=== PATIENT | female | born 1990 | race Caucasian/White ===

== ENCOUNTER 2017-02-22 07:42 | Emergency (ER) | payer SELFPAY ==
[2017-02-22] MEDS ORDERED: Adacel (T-DAP) 0.5 ML VIAL ONE (08:44)
== END 2017-02-22 09:11 | disposition home or self-care (01) ==
LOC: ERS 07:42
DX: L02.413 Cutaneous abscess of right upper limb (principal); L03.113 Cellulitis of right upper limb
CPT/HCPCS: 10060; 90471; 90715

== ENCOUNTER 2017-02-23 08:44 | Inpatient (IN) | payer SELFPAY ==
[2017-02-23 09:51] LABS: #Eosinphils 0.1 thou/uL (0.0-0.7); #Lymphocytes 1.4 thou/uL (1.20-3.40); #Monocytes 0.6 thou/uL (0.11-0.59); %Basophils 0.2 % (0.0-1.0); %Eosinophils 1.1 % (0.0-10.0); %Lymphocytes 13.5 % (21.0-51.0); %Monocytes 6.2 % (0.0-10.0); Hematocrit 39.8 % (36.0-47.0); Mean Platelet Volume 8.1 fL (7.4-10.4); Red Blood Cell (RBC) Count 4.81 mill/uL (4.20-5.40); White Blood Cell (WBC) Count 10.1 thou/uL (4.8-10.8)
[2017-02-23] MEDS ORDERED: cefTRIAXone\\ROCEPHIN 2 GM VIAL ONE (10:12)
[2017-02-23] MEDS ORDERED: Acetaminophen 325 MG TAB ONE (10:12)
[2017-02-23] MEDS ORDERED: Ibuprofen 800 MG TAB ONE (10:12)
[2017-02-23 10:14] LABS: ALT (SGPT) 11 U/L (8-55); AST (SGOT) 10 U/L (5-34); Alkaline Phosphatase 59 U/L (40-150); Anion Gap 14 mmol/L (10-20); BUN (Urea Nitrogen) 11 mg/dL (7.0-18.7); Bilirubin, Total 0.8 mg/dL (0.2-1.2); Calc. Creatinine Clearance 0 mL/min (70-130); Calcium 9.3 mg/dL (7.8-10.44); Carbon Dioxide 20 mmol/L (22-29); Chloride 105 mmol/L (98-107); Estimated GFR-MDRD 61; Globulin 3.3 g/dL (2.4-3.5); Protein, Total 7.1 g/dL (6.0-8.3)
[2017-02-23 10:21] LABS: Lactic Acid - Sepsis 1.1 mmol/L (0.5-2.2)
[2017-02-23] MEDS ORDERED: Vancomycin HCl 1.5 GM in Sodium Chloride 0.9% 250 ML 300 ML IVPB SCH (10:30)
[2017-02-23] MEDS ORDERED: Ondansetron HCl/PF 4 MG/2 ML Vial IVP PRN (12:01)
[2017-02-23] MEDS ORDERED: Bisacodyl 5 MG TAB PO PRN (12:01)
--- NOTE | 2017-02-23 12:21 | HP ---
PRIMARY CARE PHYSICIAN: None. CHIEF COMPLAINT: Hand swelling. HISTORY OF PRESENT ILLNESS: Ms. Aquino is a pleasant 26-year-old lady who was seen at [facility] on 02/23/2017. Approximately a week ago, she sustained an ant bite to her right wrist. It has been progressively s welling. She also reports pain, the pain is localized to the dorsum of the right wrist. It is wors e with movement of the hand, improves with relaxing the hand. Currently, pain is 5/10. She also had fever, maximum temperature 100.9 degrees Fahrenheit. She presented to the emergency room yesterday. She had incision and drainage of a small abscess on the right wrist. She was started on Bactrim DS. She took 2 doses. However, she reports worsening swelling and purulent drainage. She also reports that she has worsening redness over the right wris t, which has now spread to the right forearm. She therefore came to the emergency room. PAST MEDICAL HISTORY: Shingles. PAST SURGICAL HISTORY: section. SOCIAL HISTORY: The patient denies tobacco use, alcohol use or recreational drug use. FAMILY HISTORY: Patient denies any family history of diabetes mellitus. ALLERGIES: No known drug allergies. CURRENT MEDICATION: Bactrim DS 1 tablet 2 times a day. PHYSICAL EXAMINATION: GENERAL: On examination, Ms. Aquino is awake and alert, not in acute distress. VITAL SIGNS: Blood pressure is 109/75, pulse is 74, she is breathing at rate of 16, and saturating 99% on room air. She is afebrile. EYES: No scleral icterus. No conjunctival pallor. ENT: Moist mucosal membranes, no oropharyngeal erythema or exudates. NECK: Supple, nontender, normal range of movement, trachea is midline. RESPIRATORY: Accessory muscles of breathing are not active. Chest wall movements are symmetric moises aterally. LUNGS: Clear to auscultation without wheeze, rhonchi or crepitations. CARDIOVASCULAR: S1 and S2 are heard, regular. Peripheral pulses are palpable. No carotid bruit, n o pericardial rub. ABDOMEN: Soft, nontender, bowel sounds heard, no hepatomegaly, no splenomegaly. NEUROLOGIC: Cranial nerves II-XII are intact. No neurologic deficits on the right upper extremity. No vascular deficits in the right upper extremity as well. MUSCULOSKELETAL: Power is 5/5 in all 4 extremities. She is unable to make a full fist with her rig ht upper extremity because she can feel it pressing on the swelling over the dorsum of her hand. SKIN: She has an open wound at the site of incision and drainage over the dorsum of the right wrist . She also has swelling and erythema over the dorsum of the right hand as well as erythema extendin g into distal right forearm. There are no neurovascular deficits in that extremity. PSYCHIATRIC: Normal mood, normal affect, patient is oriented to time, place and person. LYMPHATIC: No cervical lymphadenopathy. LABORATORY DATA: Ms. Aquino's labs and investigations were reviewed. She has sodium of 135, lyudmila l potassium, normal lactic acid, decreased carbon dioxide of 20, normal creatinine, and normal liver profile. Total white count is normal at 10,100, although neutrophil percentage is elevated at 79%. Hemoglobin and platelet count are normal. ASSESSMENT AND PLAN: Ms. Aquino is a pleasant 26-year-old lady who was seen at [facility]. Her problem list includes: 1. Cellulitis: Ms. Aquino has cellulitis as well as abscess, which was incised and drained yester day over the right wrist dorsum. The cellulitis extends to the dorsum of the right hand as well as distal right forearm. She will be admitted to the hospital. I will continue intravenous vancomycin and start her on intravenous Ancef. She has received a dose of vancomycin already as well as ceftr iaxone. Await cultures, blood and wound. 2. Hyponatremia: Mild, asymptomatic, we will recheck. 3. Deep venous thrombosis prophylaxis with Lovenox. LEVEL OF RISK: Moderate. LEVEL OF COMPLEXITY: Moderate.
[2017-02-23 12:57] VITALS: BMI 40.4
[2017-02-23] MEDS: Vancomycin HCl 1 GM in Premix Bag 1 BAG IVPB SCH (20:25)
[2017-02-24] MEDS: Acetaminophen 325 MG TAB PO PRN (00:31)
[2017-02-24 04:37] LABS: #Eosinphils 0.3 thou/uL (0.0-0.7); #Lymphocytes 2.1 thou/uL (1.20-3.40); #Monocytes 0.6 thou/uL (0.11-0.59); #Neutrophils 5.5 thou/uL (1.40-6.50); %Basophils 0.4 % (0.0-1.0); %Lymphocytes 24.3 % (21.0-51.0); %Monocytes 6.9 % (0.0-10.0); Mean Platelet Volume 8.3 fL (7.4-10.4); Red Blood Cell (RBC) Count 4.44 mill/uL (4.20-5.40); White Blood Cell (WBC) Count 8.4 thou/uL (4.8-10.8)
[2017-02-24 05:02] LABS: Anion Gap 13 mmol/L (10-20); BUN (Urea Nitrogen) 12 mg/dL (7.0-18.7); Calc. Creatinine Clearance 160 mL/min (70-130); Calcium 8.6 mg/dL (7.8-10.44); Carbon Dioxide 18 mmol/L (22-29); Chloride 106 mmol/L (98-107); Estimated GFR-MDRD 68
[2017-02-24] MEDS: Vancomycin HCl 1 GM in Premix Bag 1 BAG IVPB SCH ×2 (09:42→20:35)
[2017-02-24] MEDS: Enoxaparin Sodium 40 MG/0.4 ML SYRINGE SC SCH (09:44)
--- NOTE | 2017-02-24 15:48 | PDOC.PN ---
- Subjective Encounter Start Date: 02/24/17 Encounter Start Time: 10:35 Subjective: still has purulence coming out of her wound on right forearm - Objective MAR Reviewed: Yes Vital Signs & Weight: Vital Signs (12 hours) Temp Pulse Resp BP Pulse Ox 02/24/17 11:40 98.1 F 71 16 104/67 98 02/24/17 08:24 97.9 F 74 12 97 02/24/17 07:55 97.9 F 74 16 107/73 97 02/24/17 04:00 98.2 F 75 18 103/64 98 Weight Weight 257 lb 12.8 oz I&O: 02/23/17 02/24/17 02/25/17 06:59 06:59 06:59 Intake Total 1002.5 Balance 1002.5 Result Diagrams: 02/24/17 04:05 02/24/17 04:05 Phys Exam - Physical Examination HEENT: PERRLA, moist MMs Neck: no JVD, supple Respiratory: no wheezing, no rales Cardiovascular: RRR, no significant murmur Gastrointestinal: soft, non-tender, positive bowel sounds Musculoskeletal: pulses present right hand is erythematous, lower dorsum of forearm has an abscess Neurological: non-focal, moves all 4 limbs Psychiatric: A&O x 3 Dx/Plan (1) Abscess of right forearm Code(s): L02.413 - CUTANEOUS ABSCESS OF RIGHT UPPER LIMB Status: Acute (2) Cellulitis of right hand Code(s): L03.113 - CELLULITIS OF RIGHT UPPER LIMB Status: Acute - Plan is on ancef and vanc -: d/w -: will likely need wider I&D -: had tmax of 100 last 24hrs * . Review of Systems - Medications/Allergies Allergies/Adverse Reactions: Allergies Allergy/AdvReac Type Severity Reaction Status Date / Time No Known Drug Allergies Allergy Verified 02/23/17 12:53 Medications: Current Medications Acetaminophen (Tylenol) 650 mg PO Q4H PRN PRN Reason: Headache/Fever or Pain Last Admin: 02/24/17 00:31 Dose: 650 mg Bisacodyl (Dulcolax) 10 mg PO DAILYPRN PRN PRN Reason: Constipation Enoxaparin Sodium (Lovenox) 40 mg SC 0900 [facility] Last Admin: 02/24/17 09:44 Dose: Not Given Vancomycin HCl 1 gm/ Device 200 mls @ 200 mls/hr IVPB Q12HR [facility] Last Admin: 02/24/17 09:42 Dose: 200 mls Cefazolin Sodium 1 gm/ Sodium (Chloride) 100 mls @ 200 mls/hr IVPB Q8HR [facility] Last Admin: 02/24/17 14:35 Dose: 100 mls Morphine Sulfate (Morphine Sulfate) 2 mg SLOW IVP Q4H PRN PRN Reason: Pain > 3 Last Admin: 02/23/17 21:07 Dose: 2 mg Ondansetron HCl (Zofran) 4 mg IVP Q6H PRN PRN Reason: Nausea/Vomiting Sodium Chloride (Flush - Normal Saline) 10 ml IVF PRN PRN PRN Reason: Saline Flush Last Admin: 02/24/17 14:36 Dose: 10 ml
[2017-02-24] MEDS ORDERED: Bupivacaine PF 0.5% 30 ML VIAL ONE (16:23)
[2017-02-24] MEDS ORDERED: Betamet Acet/Betamet Na Ph 30 MG/5 ML VIAL ONE (16:23)
[2017-02-24] MEDS ORDERED: Bacitracin Zinc Ointment 30 gm TUBE ONE ×2 (16:23→16:24)
[2017-02-24] MEDS ORDERED: Sodium Chloride 0.9% 30 ML ONE (16:25)
[2017-02-24] MEDS ORDERED: Fentanyl 100 MCG/2 ML VIAL ONE ×2 (17:14→18:38)
[2017-02-24] MEDS ORDERED: Ketorolac Tromethamine 30 MG/ML VIAL ONE (17:22)
[2017-02-24] MEDS ORDERED: Lidocaine 1% PF 5 ML VIAL ONE (17:22)
[2017-02-24] MEDS ORDERED: Propofol 200 MG/20 ML VIAL ONE ×2 (17:22)
[2017-02-24] MEDS ORDERED: Ondansetron HCl/PF 4 MG/2 ML Vial IVP PRN (18:22)
[2017-02-24] MEDS ORDERED: Promethazine HCl 25 MG/ML VIAL SLOW IVP PRN (18:22)
[2017-02-24] MEDS ORDERED: Promethazine HCl 25 MG/ML VIAL IM PRN ×2 (18:22→21:53)
[2017-02-24] MEDS ORDERED: Meperidine HCl/PF 25 MG/ML VIAL IM PRN (21:52)
[2017-02-25] MEDS: HYDROcodone/Acetaminophen 7.5/325 mg Tablet PO PRN ×2 (04:16→17:02)
[2017-02-25 05:09] LABS: #Eosinphils 0.2 thou/uL (0.0-0.7); #Lymphocytes 1.8 thou/uL (1.20-3.40); #Monocytes 0.6 thou/uL (0.11-0.59); #Neutrophils 3.6 thou/uL (1.40-6.50); %Basophils 0.1 % (0.0-1.0); %Eosinophils 2.9 % (0.0-10.0); %Lymphocytes 28.7 % (21.0-51.0); Hematocrit 35.8 % (36.0-47.0); Mean Platelet Volume 8.5 fL (7.4-10.4); Red Blood Cell (RBC) Count 4.34 mill/uL (4.20-5.40); White Blood Cell (WBC) Count 6.2 thou/uL (4.8-10.8)
[2017-02-25 05:25] LABS: Anion Gap 11 mmol/L (10-20); BUN (Urea Nitrogen) 9 mg/dL (7.0-18.7); Calc. Creatinine Clearance 189 mL/min (70-130); Calcium 8.8 mg/dL (7.8-10.44); Carbon Dioxide 21 mmol/L (22-29); Chloride 108 mmol/L (98-107); Estimated GFR-MDRD 83
--- NOTE | 2017-02-25 07:55 | OP ---
DATE OF PROCEDURE: 02/24/2017 PREOPERATIVE DIAGNOSIS: Right hand abscess secondary to what she describes as a single ant bite. POSTOPERATIVE DIAGNOSIS: Abscess almost 2 cm in diameter depth down to, but not including the fasci a over the dorsal interval between the second and third dorsal compartments. COMPLICATIONS: None. PROCEDURE: Incision and drainage abscess. Culture sent, yes. COMPLICATIONS: None. TOURNIQUET TIME: 11 minutes. ESTIMATED BLOOD LOSS: 15 mL. PACKING: Normal saline soaked gauze. Specimen sent to lab yes. Tissue cultures, aerobic, anaerobic, fungus and TB. INDICATION: The patient came to the hospital with a 4 day, what she describes as a single ant bite. She has been on IV antibiotics for 24 hour with no resolution, large erythema, abscess seen, thus i ndicating surgery. DESCRIPTION OF PROCEDURE: After successful general endotracheal anesthesia, the hand was prepped an d draped. Tourniquet was inflated after limb exsanguination 250 mmHg pressure. We then identified abscess cavity made approximately a 3.5 cm incision, completely resected the necrotic skin edge, fou nd the subcutaneous cavity almost 2 cm in diameter, depth approximately 5-6 mm and excised the dorsa l wall, the deep wall and entire cavity including necrotic fat around it. Then, we had only live ti ssue sparing all nerves and tendons. We then irrigated with the Pulsavac 3 liters with normal saline inside, treatment with bacitracin in side, 59 units per liter. Then, we deflated the tourniquet, and obtained hemostasis, packed the wo und with normal saline soaked gauze x2. Bulky dressing was applied. The patient left the operating room without complications.
[2017-02-25] MEDS: Enoxaparin Sodium 40 MG/0.4 ML SYRINGE SC SCH (08:11)
[2017-02-25] MEDS: Vancomycin HCl 1 GM in Premix Bag 1 BAG IVPB SCH ×2 (08:12→23:06)
--- NOTE | 2017-02-25 11:26 | PDOC.PN ---
- Subjective Encounter Start Date: 02/25/17 Encounter Start Time: 09:20 Subjective: feels better -: is able to move fingers, still edematous - Objective MAR Reviewed: Yes Vital Signs & Weight: Vital Signs (12 hours) Temp Pulse Resp BP Pulse Ox 02/25/17 08:00 97.6 F 58 L 14 98 02/25/17 07:43 97.6 F 58 L 14 101/61 98 02/25/17 04:00 97.9 F 61 20 108/72 02/25/17 00:00 97.4 F L 61 20 108/73 97 Weight Weight 257 lb 12.8 oz I&O: 02/24/17 02/25/17 02/26/17 06:59 06:59 06:59 Intake Total 1002.5 1320 Output Total 4 Balance 1002.5 1316 Result Diagrams: 02/25/17 04:42 02/25/17 04:42 Phys Exam - Physical Examination HEENT: PERRLA, moist MMs Neck: no JVD, supple Respiratory: no wheezing, no rales Cardiovascular: RRR, no significant murmur Gastrointestinal: soft, non-tender, positive bowel sounds Musculoskeletal: pulses present right forearm in dressing Neurological: non-focal, moves all 4 limbs Psychiatric: A&O x 3 Dx/Plan (1) Abscess of right forearm Code(s): L02.413 - CUTANEOUS ABSCESS OF RIGHT UPPER LIMB Status: Acute (2) Cellulitis of right hand Code(s): L03.113 - CELLULITIS OF RIGHT UPPER LIMB Status: Acute (3) Obesity Code(s): E66.9 - OBESITY, UNSPECIFIED Status: Acute Qualifiers: Obesity classification: adult class 3 (BMI >= 40) - Plan is on ancef and vanc -: may dc home in am on augmentin and cipro if ok with -: needs to learn dressing changes -: right forearm and hand swelling slowly receding * . Review of Systems - Medications/Allergies Allergies/Adverse Reactions: Allergies Allergy/AdvReac Type Severity Reaction Status Date / Time No Known Drug Allergies Allergy Verified 02/23/17 12:53 Medications: Current Medications Acetaminophen (Tylenol) 650 mg PO Q4H PRN PRN Reason: Headache/Fever or Pain Last Admin: 02/24/17 00:31 Dose: 650 mg Hydrocodone Bitart/Acetaminophen ([place] 7.5/325) 1 tab PO Q6H PRN PRN Reason: PAIN SCALE 1-3 Last Admin: 02/25/17 04:16 Dose: 1 tab Hydrocodone Bitart/Acetaminophen ([place] 7.5/325) 2 tab PO Q6H PRN PRN Reason: PAIN SCALE 4-6 Bisacodyl (Dulcolax) 10 mg PO DAILYPRN PRN PRN Reason: Constipation Enoxaparin Sodium (Lovenox) 40 mg SC 0900 [facility] Last Admin: 02/25/17 08:11 Dose: Not Given Vancomycin HCl 1 gm/ Device 200 mls @ 200 mls/hr IVPB Q12HR [facility] Last Admin: 02/25/17 08:12 Dose: 200 mls Cefazolin Sodium 1 gm/ Sodium (Chloride) 100 mls @ 200 mls/hr IVPB Q8HR [facility] Last Admin: 02/25/17 05:07 Dose: 100 mls Meperidine HCl (Demerol) 25 mg IM Q4H PRN PRN Reason: FOR SEVERE PAIN OR DRESSING CH Last Admin: 02/25/17 06:53 Dose: 25 mg Morphine Sulfate (Morphine Sulfate) 2 mg SLOW IVP Q4H PRN PRN Reason: Pain > 3 Last Admin: 02/23/17 21:07 Dose: 2 mg Ondansetron HCl (Zofran) 4 mg IVP Q6H PRN PRN Reason: Nausea/Vomiting Promethazine HCl (Phenergan) 25 mg IM Q4H PRN PRN Reason: Nausea (GIVE WITH DEMEROL ) Last Admin: 02/25/17 06:55 Dose: 25 mg Sodium Chloride (Flush - Normal Saline) 10 ml IVF PRN PRN PRN Reason: Saline Flush Last Admin: 02/25/17 05:07 Dose: 10 ml
[2017-02-25 20:32] LABS: Vancomycin, Trough 8.5 ug/mL
[2017-02-25] MEDS ORDERED: Vancomycin HCl 1.75 GM in Sodium Chloride 0.9% 500 ML IVPB SCH (22:15)
[2017-02-26] MEDS: HYDROcodone/Acetaminophen 7.5/325 mg Tablet PO PRN ×3 (00:14→16:52)
[2017-02-26 05:14] LABS: #Eosinphils 0.3 thou/uL (0.0-0.7); #Lymphocytes 2.6 thou/uL (1.20-3.40); #Monocytes 0.5 thou/uL (0.11-0.59); #Neutrophils 2.2 thou/uL (1.40-6.50); %Basophils 0.4 % (0.0-1.0); %Eosinophils 5.7 % (0.0-10.0); %Monocytes 8.1 % (0.0-10.0); Mean Platelet Volume 8.5 fL (7.4-10.4); Red Blood Cell (RBC) Count 4.06 mill/uL (4.20-5.40); White Blood Cell (WBC) Count 5.6 thou/uL (4.8-10.8)
[2017-02-26 05:45] LABS: Anion Gap 8 mmol/L (10-20); BUN (Urea Nitrogen) 12 mg/dL (7.0-18.7); Calc. Creatinine Clearance 201 mL/min (70-130); Calcium 8.6 mg/dL (7.8-10.44); Carbon Dioxide 25 mmol/L (22-29); Chloride 108 mmol/L (98-107); Estimated GFR-MDRD 89
[2017-02-26] MEDS: Enoxaparin Sodium 40 MG/0.4 ML SYRINGE SC SCH (08:33)
[2017-02-26] MEDS: Vancomycin HCl 1.75 GM in Sodium Chloride 0.9% 500 ML IVPB SCH ×2 (09:49→22:08)
--- NOTE | 2017-02-26 14:25 | PDOC.PN ---
- Subjective Encounter Start Date: 02/26/17 Encounter Start Time: 10:15 -: old records requested/rev Patient seen and examined. No new complaints. No overnight events - Objective MAR Reviewed: Yes Vital Signs & Weight: Vital Signs (12 hours) Temp Pulse Resp BP Pulse Ox 02/26/17 08:00 98.0 F 65 16 97 02/26/17 07:49 98.0 F 65 16 119/78 97 02/26/17 04:00 98 F 53 L 18 103/66 99 Weight Weight 257 lb 12.8 oz I&O: 02/25/17 02/26/17 02/27/17 06:59 06:59 06:59 Intake Total 1320 3000 Output Total 4 Balance 1316 3000 Result Diagrams: 02/26/17 04:36 02/26/17 04:36 Phys Exam - Physical Examination Constitutional: NAD HEENT: PERRLA, moist MMs, sclera anicteric Neck: no JVD, supple Respiratory: no wheezing, no rales, no rhonchi Cardiovascular: RRR, no significant murmur, no rub Gastrointestinal: soft, non-tender, no distention, positive bowel sounds Musculoskeletal: no edema, pulses present right hand with dressing Neurological: non-focal, normal sensation, moves all 4 limbs Psychiatric: normal affect, A&O x 3 Skin: no rash, normal turgor Dx/Plan (1) Abscess of right forearm Code(s): L02.413 - CUTANEOUS ABSCESS OF RIGHT UPPER LIMB Status: Acute (2) Cellulitis of right hand Code(s): L03.113 - CELLULITIS OF RIGHT UPPER LIMB Status: Acute (3) Obesity Code(s): E66.9 - OBESITY, UNSPECIFIED Status: Acute Qualifiers: Obesity classification: adult class 3 (BMI >= 40) - Plan cont current plan of care, continue antibiotics * medication reviewed as below * symptomatic treatment * continue IV antibiotics today * plan for discharge tomorrow on oral antibiotics. Review of Systems - Review of Systems ENT: negative: Ear Pain, Ear Discharge, Nose Pain, Nose Discharge, Nose Congestion, Mouth Pain, Mouth Swelling, Throat Pain, Throat Swelling, Other Respiratory: negative: Cough, Dry, Shortness of Breath, Hemoptysis, SOB with Excertion, Pleuritic Pain, Sputum, Wheezing Cardiovascular: negative: Chest Pain, Palpitations, Orthopnea, Paroxysmal Noc. Dyspnea, Edema, Light Headedness, Other Gastrointestinal: negative: Nausea, Vomiting, Abdominal Pain, Diarrhea, Constipation, Melena, Hematochezia, Other Genitourinary: negative: Dysuria, Frequency, Incontinence, Hematuria, Retention , Other Musculoskeletal: negative: Neck Pain, Shoulder Pain, Arm Pain, Back Pain, Hand Pain, Leg Pain, Foot Pain, Other - Medications/Allergies Allergies/Adverse Reactions: Allergies Allergy/AdvReac Type Severity Reaction Status Date / Time No Known Drug Allergies Allergy Verified 02/23/17 12:53 Medications: Current Medications Acetaminophen (Tylenol) 650 mg PO Q4H PRN PRN Reason: Headache/Fever or Pain Last Admin: 02/24/17 00:31 Dose: 650 mg Hydrocodone Bitart/Acetaminophen ([place] 7.5/325) 1 tab PO Q6H PRN PRN Reason: PAIN SCALE 1-3 Last Admin: 02/26/17 09:48 Dose: 1 tab Hydrocodone Bitart/Acetaminophen ([place] 7.5/325) 2 tab PO Q6H PRN PRN Reason: PAIN SCALE 4-6 Last Admin: 02/26/17 00:14 Dose: 2 tab Bisacodyl (Dulcolax) 10 mg PO DAILYPRN PRN PRN Reason: Constipation Enoxaparin Sodium (Lovenox) 40 mg SC 0900 [facility] Last Admin: 02/26/17 08:33 Dose: Not Given Cefazolin Sodium 1 gm/ Sodium (Chloride) 100 mls @ 200 mls/hr IVPB Q8HR [facility] Last Admin: 02/26/17 13:52 Dose: 100 mls Vancomycin HCl 1.75 gm/ Sodium (Chloride) 500 mls @ 250 mls/hr IVPB 1000,2200 [facility] Last Admin: 02/26/17 09:49 Dose: 500 mls Meperidine HCl (Demerol) 25 mg IM Q4H PRN PRN Reason: FOR SEVERE PAIN OR DRESSING [facility] Last Admin: 02/25/17 06:53 Dose: 25 mg Morphine Sulfate (Morphine Sulfate) 2 mg SLOW IVP Q4H PRN PRN Reason: Pain > 3 Last Admin: 02/23/17 21:07 Dose: 2 mg Ondansetron HCl (Zofran) 4 mg IVP Q6H PRN PRN Reason: Nausea/Vomiting Promethazine HCl (Phenergan) 25 mg IM Q4H PRN PRN Reason: Nausea (GIVE WITH DEMEROL ) Last Admin: 02/25/17 06:55 Dose: 25 mg Sodium Chloride (Flush - Normal Saline) 10 ml IVF PRN PRN PRN Reason: Saline Flush Last Admin: 02/25/17 05:07 Dose: 10 ml
[2017-02-26] MEDS: Acetaminophen 325 MG TAB PO PRN (21:07)
[2017-02-27] MEDS: HYDROcodone/Acetaminophen 7.5/325 mg Tablet PO PRN ×2 (00:07→06:29)
[2017-02-27 05:04] VITALS: TEMP 97.8
[2017-02-27] MEDS: Enoxaparin Sodium 40 MG/0.4 ML SYRINGE SC SCH (07:56)
[2017-02-27] MEDS: Vancomycin HCl 1.75 GM in Sodium Chloride 0.9% 500 ML IVPB SCH (07:56)
[2017-02-27 08:32] VITALS: BP 109/74
[2017-02-27 10:46] LABS: Vancomycin, Trough 18.7 ug/mL
--- NOTE | 2017-02-27 11:27 | DIS ---
DATE OF ADMISSION: 02/23/2017 DATE OF DISCHARGE: 02/27/2017 PRIMARY CARE PHYSICIAN: [facility] call admission. DISCHARGE DISPOSITION: Home. PRIMARY DISCHARGE DIAGNOSES: Cellulitis of right hand and abscess of right forearm, status post inc ision and drainage. SECONDARY DISCHARGE DIAGNOSIS: Obesity with body mass index 40. PRIMARY PROCEDURE/OPERATION: I\T\D was performed by Dr. Nima Reyna. RADIOLOGICAL INVESTIGATION: None. SIGNIFICANT LABORATORY DATA: Hemoglobin 11.0, creatinine 0.79, blood culture negative. Culture fro m wound grew Staph aureus. DISCHARGE MEDICATIONS: Tylenol #3 one or two tablets q.6 hourly p.r.n. for pain, Augmentin 875 mg t wice daily for 10 days, Cipro 500 mg p.o. b.i.d. for 10 days, and Florastor 250 mg p.o. daily for 10 days. CONTRAINDICATIONS: None. CODE STATUS: FULL CODE. INPATIENT HORSE SHOW JUDGE: Dr. Nima Reyna. TEST RESULTS PENDING ON DISCHARGE: None. ALLERGIES: No known drug allergy. DISCHARGE PLAN: Post hospital, the patient has appointment with Dr. Nima Reyna today at 11:30 a.m. HOSPITAL COURSE: A 26-year-old female who was admitted by Dr. Bland, please see his H\T\P for furth er details. The patient was admitted for right hand swelling and right wrist swelling. This patien t had abscess and required I\T\D. Dr. Nima Reyna did I\T\D and subsequently wound was dressed. The patient was given antibiotic therapy while in hospital with vancomycin and Ancef. On discharg e, we changed to Augmentin and Cipro. Today, patient has appointment with Dr. Nima Reyna. The patient remained afebrile while in hospital and she was hemodynamically stable. The patient is seen and examined at bedside today. PHYSICAL EXAMINATION: VITAL SIGNS: Currently, temperature 97.8, pulse 62, respiratory rate 16, saturation 97%, blood pres sure 109/74. Weight 257 pounds. GENERAL: The patient is alert, awake, no acute distress. HEAD: Normocephalic, atraumatic. LUNGS: Clear. CARDIAC: S1, S2 regular without any murmur. ABDOMEN: Soft and benign. EXTREMITIES: No edema. Wound is covered with a dressing. DISCHARGE INSTRUCTIONS: The patient is medically stable for discharge. All new medication prescrip tion given to her.
== END 2017-02-27 09:46 | disposition home or self-care (01) | DRG 603 ==
LOC: ERS 08:44 → T4-B 10:19
PROVIDERS: ADMIT Internal Medicine; ATTEND Internal Medicine
PROC: 0H9FXZZ Drainage of Right Hand Skin, External Approach (ICD-10-PCS; principal; 2017-02-24)
DX: L02.511 Cutaneous abscess of right hand (principal); E87.1 Hypo-osmolality and hyponatremia; L03.113 Cellulitis of right upper limb; Z68.41 Body mass index [BMI] 40.0-44.9, adult; S60.561A Insect bite (nonvenomous) of right hand, initial encounter; E66.9 Obesity, unspecified; B95.61 Methicillin susceptible Staphylococcus aureus infection as the cause of diseases classified elsewhere; W57.XXXA Bitten or stung by nonvenomous insect and other nonvenomous arthropods, initial encounter
CPT/HCPCS: 36415; 80048; 80053; 80202; 81025; 83605; 85025; 87040; 87070; 87077; 87186; 87205; 96365; 96367; A4216; J0131; J0690; J0696; J0702; J1170; J1650; J1885; J2001; J2175; J2270; J2550; J2704; J3010; J3370; J3490; J7050; S0020

== ENCOUNTER → 2017-03-01 | Day surgery (SDC) | payer SELFPAY ==
[~2017-03-01] MED LIST: Bacitracin Zinc Ointment 30 gm TUBE ONE; Bupivacaine PF 0.5% 30 ML VIAL ONE; Fentanyl 100 MCG/2 ML VIAL ONE; Ketorolac Tromethamine 30 MG/ML VIAL ONE; Lidocaine 1% PF 5 ML VIAL ONE; Ondansetron HCl/PF 4 MG/2 ML Vial IVP PRN; Ondansetron HCl/PF 4 MG/2 ML Vial ONE; Promethazine HCl 25 MG/ML VIAL IM PRN; Promethazine HCl 25 MG/ML VIAL SLOW IVP PRN; Propofol 200 MG/20 ML VIAL ONE; Sodium Chloride 0.9% 10 ML ONE; Sodium Chloride 0.9% 20 ML ONE; Thrombin 5000 UNITS/5 ML VIAL ONE
--- NOTE | 2017-03-02 12:08 | OP ---
DATE OF SURGERY: 03/01/2017 PREOPERATIVE DIAGNOSIS: Right hand 5-cm open wound. POSTOPERATIVE DIAGNOSIS: Right hand 5-cm open wound. ANESTHESIA: General endotracheal anesthesia, [place] Anesthesia, [employer], Art Ball. ESTIMATED BLOOD LOSS: 5 mL. FINDINGS: No gross infection. INDICATIONS: Patient returned for stage wound management after having a very infected abscess cavit y debrided 6 days prior. Demonstrated with change of dressing in clinic, no gross infection. Wound environment appears stable for closure. Already on antibiotics. PROCEDURES PERFORMED: 1. Wound debridement with following techniques; a. Depth was down to but not including fascia. b. Excisional technique. c. Instruments used were [place] blade, 11-blade knife, tenotomy scissors, curette, closure was comp romi in 2 layers. No infection found. 2. Closure, multiple repair of wound, multiple layers, [id number]. COMPLICATIONS: None. DESCRIPTION OF PROCEDURE: After successful general anesthesia listed above, patient had the limb pr epped and draped. Timeout was appropriate. We injected the wound edges with 12 mL of 0.5% Marcaine , then began to undermine. We noted some minimal amount of wound edge necrosis, so we performed a d ebridement, which included 1-mm near circumferential removal of the skin edges to have fresh tissue for repair success. We then irrigated with 500 mL of normal saline pressure with antibiotics inside. Hemostasis was obtained. There was no gross infection. Now, all tissue was slightly bleed ing and prepared for closure. Two-layer closure was accomplished with deep dermal interrupted x4 of 4-0 Monocryl and then interrup jenaro simple sutures, multiple with 4-0 nylon. Bulky dressing was applied with a small pink and green Coban wrap. She left the operating room without complication.
== END ==
LOC: SDC 19:00
PROVIDERS: ATTEND Orthopaedic Surgery Hand Surgery
DX: S61.401A Unspecified open wound of right hand, initial encounter (principal); D64.9 Anemia, unspecified
CPT/HCPCS: A4216; J1885; J2001; J2405; J2704; J3010; J3490; S0020

== ENCOUNTER 2023-01-13 04:44 | Emergency (ER) | payer BC, MEDICAID ==
[2023-01-13] MEDS ORDERED: Tranexamic Acid 1,000 MG/10 ML VIAL ONE (04:59)
[2023-01-13 05:22] LABS: #Eosinphils 0.2 thou/uL (0.0-0.7); #Monocytes 0.5 thou/uL (0.11-0.59); #Neutrophils 7.9 thou/uL (1.40-6.50); %Basophils 0.2 % (0.0-1.0); %Eosinophils 1.8 % (0.0-10.0); %Lymphocytes 18.9 % (21.0-51.0); %Monocytes 4.9 % (0.0-10.0); %Neutrophils 73.8 % (42.0-75.0); Hematocrit 26.7 % (36.0-47.0); Hemoglobin 7.9 g/dL (12.0-16.0); Mean Corpuscular HGB CONC 29.6 g/dL (32.0-36.0); Mean Corpuscular Hemoglobin 21.8 pg (27.0-31.0); Mean Corpuscular Volume 73.6 fl (78.0-98.0); Mean Platelet Volume 10.4 fL (7.4-10.4); Platelet Count 290 10x3/uL (130-400); RBC Distribution Width 18.3 % (11.5-14.5); Red Blood Cell (RBC) Count 3.63 mill/uL (4.20-5.40); White Blood Cell (WBC) Count 10.7 10x3/uL (4.8-10.8)
[2023-01-13] MEDS ORDERED: Ondansetron PF 4 MG/2 ML Vial ONE (05:25)
[2023-01-13 05:34] LABS: BHCG - Serum Negative (NEGATIVE); Pregs Control Background? CLEAR/WHITE (CLR/WHITE); Pregs Control Bar Appear? YES (CONTROL BAR)
[2023-01-13 05:42] LABS: Prothrombin Time 13.6 sec (12.0-14.7)
[2023-01-13 05:43] LABS: PTT 29.7 sec (22.9-36.1)
[2023-01-13 05:44] LABS: Bacteria/HPF None Seen HPF (None Seen); Bilirubin Negative (Negative); Blood, Urine Trace (Negative); CAUTI Indications for Culture Urological Procedure; Clarity Clear (Clear); Glucose, Urine (Dipstick) Normal (Negative); Ketone, Urine Negative (Negative); Leukocyte 25 Leu/uL (Negative); Mucous/LPF 2+ LPF (<2+); Nitrite Negative (Negative); Protein, Urine (Dipstick) 20 mg/dL (Neg-Trace); RBC/HPF 0-3 HPF (0-3); Specific Gravity, Urine 1.032 (1.002-1.036); Urobilinogen 3 mg/dL (Less than 2); WBC/HPF 0-3 HPF (0-3); pH, Urine 5.5 (5.0-9.0)
[2023-01-13 05:46] LABS: ALT (SGPT) 16 U/L (8-55); AST (SGOT) 25 U/L (5-34); Albumin 3.6 g/dL (3.5-5.0); Alkaline Phosphatase 80 U/L (40-110); Anion Gap 11 mmol/L (10-20); BUN (Urea Nitrogen) 15 mg/dL (7.0-18.7); Bilirubin, Total 0.3 mg/dL (0.2-1.2); Calc. Creatinine Clearance 0 mL/min (70-130); Calcium 8.9 mg/dL (7.8-10.44); Carbon Dioxide 24 mmol/L (22-29); Chloride 106 mmol/L (98-107); Estimated GFR 70; Globulin 2.8 g/dL (2.4-3.5); Glucose 125 mg/dL (70-105); Lipase 32 U/L (8-78); Potassium 4.3 mmol/L (3.5-5.1); Protein, Total 6.4 g/dL (6.0-8.3); Sodium 137 mmol/L (136-145)
[2023-01-13 05:48] LABS: Urine Culture Reflex Yes Yes
== END 2023-01-13 08:50 | disposition short-term general hospital (02) ==
LOC: ERS 04:44
DX: R57.8 Other shock (principal); N93.9 Abnormal uterine and vaginal bleeding, unspecified
CPT/HCPCS: 36415; 36430; 80053; 81001; 83605; 83690; 84703; 85025; 85610; 85730; 86850; 86900; 86901; 87040; 87077; 87086; 87186; 93005; J2405; P9016

== ENCOUNTER 2023-04-20 20:31 | Emergency (ER) | payer BC, SELFPAY ==
[2023-04-20] MEDS ORDERED: Ondansetron PF 4 MG/2 ML Vial ONE (21:03)
[2023-04-20 21:07] LABS: #Eosinphils 0.2 thou/uL (0.0-0.7); #Monocytes 0.4 thou/uL (0.11-0.59); #Neutrophils 9.3 thou/uL (1.40-6.50); %Basophils 0.2 % (0.0-1.0); %Eosinophils 1.8 % (0.0-10.0); %Lymphocytes 15.4 % (21.0-51.0); %Monocytes 3.4 % (0.0-10.0); %Neutrophils 78.9 % (42.0-75.0); Hemoglobin 10.8 g/dL (12.0-16.0); Mean Corpuscular HGB CONC 31.8 g/dL (32.0-36.0); Mean Corpuscular Hemoglobin 22.6 pg (27.0-31.0); Mean Corpuscular Volume 71.1 fl (78.0-98.0); Mean Platelet Volume 10.7 fL (7.4-10.4); Platelet Count 321 10x3/uL (130-400); RBC Distribution Width 14.2 % (11.5-14.5); Red Blood Cell (RBC) Count 4.78 mill/uL (4.20-5.40); White Blood Cell (WBC) Count 11.8 10x3/uL (4.8-10.8)
[2023-04-20 21:15] LABS: BHCG - Serum Negative (NEGATIVE); Pregs Control Background? CLEAR/WHITE (CLR/WHITE); Pregs Control Bar Appear? YES (CONTROL BAR)
[2023-04-20 21:22] LABS: Acetaminophen Less than 10 mcg/mL (10.0-30.0); Alcohol Less than 10.0 mg/dL (Less than 10); Lipase 38 U/L (8-78); Salicylate Less than 8.0 mg/dL (15.0-30.0)
[2023-04-20 21:23] LABS: ALT (SGPT) 12 U/L (8-55); AST (SGOT) 15 U/L (5-34); Albumin 4.1 g/dL (3.5-5.0); Alkaline Phosphatase 85 U/L (40-110); Anion Gap 16 mmol/L (10-20); BUN (Urea Nitrogen) 15 mg/dL (7.0-18.7); Bilirubin, Total 0.3 mg/dL (0.2-1.2); Calc. Creatinine Clearance 0 mL/min (70-130); Calcium 9.7 mg/dL (7.8-10.44); Carbon Dioxide 26 mmol/L (22-29); Chloride 101 mmol/L (98-107); Estimated GFR 62; Globulin 3.4 g/dL (2.4-3.5); Glucose 132 mg/dL (70-105); Protein, Total 7.5 g/dL (6.0-8.3); Sodium 139 mmol/L (136-145)
[2023-04-20 21:30] LABS: Anisocytosis SLIGHT = 6-15 cells HPF (0-5); CellaVision Operator ID lab.sh2; Microcytosis SLIGHT = 6-15 cells HPF (0-5); Ovalocytes SLIGHT = 2-5 cells HPF (0-1); Platelet Adequacy Comment Platelets Normal; Polychromasia SLIGHT = 2-3 cells HPF (0-2)
[2023-04-20 21:33] LABS: Troponin I Less than 0.010 ng/mL (< 0.028)
== END 2023-04-20 22:56 | disposition home or self-care (01) ==
LOC: ERS 20:31
DX: I95.9 Hypotension, unspecified (principal)
CPT/HCPCS: 36416; 71045; 80053; 80307; 83605; 83690; 84484; 84703; 85025; 86850; 86900; 86901; 93005; 96374; J2405

== ENCOUNTER 2023-07-02 15:48 | Inpatient (IN) | payer BC, SELFPAY ==
[2023-07-02] MEDS ORDERED: Iopamidol-370 76% 500 ML MDV (1 ML CHARGE) ONE (16:04)
[2023-07-02 16:30] LABS: #Eosinphils 0.1 thou/uL (0.0-0.7); #Monocytes 0.5 thou/uL (0.11-0.59); #Neutrophils 9.4 thou/uL (1.40-6.50); %Basophils 0.2 % (0.0-1.0); %Eosinophils 0.9 % (0.0-10.0); %Lymphocytes 12.2 % (21.0-51.0); %Monocytes 4.5 % (0.0-10.0); %Neutrophils 81.8 % (42.0-75.0); Hematocrit 37.2 % (36.0-47.0); Hemoglobin 11.1 g/dL (12.0-16.0); Mean Corpuscular HGB CONC 29.8 g/dL (32.0-36.0); Mean Corpuscular Hemoglobin 21.8 pg (27.0-31.0); Mean Corpuscular Volume 72.9 fl (78.0-98.0); Mean Platelet Volume 10.4 fL (7.4-10.4); Platelet Count 258 10x3/uL (130-400); RBC Distribution Width 16.5 % (11.5-14.5); White Blood Cell (WBC) Count 11.4 10x3/uL (4.8-10.8)
[2023-07-02 16:40] LABS: BHCG - Serum Negative (NEGATIVE); Pregs Control Background? CLEAR/WHITE (CLR/WHITE); Pregs Control Bar Appear? YES (CONTROL BAR)
[2023-07-02] MEDS ORDERED: Ondansetron PF 4 MG/2 ML Vial ONE (16:52)
[2023-07-02] MEDS ORDERED: fentaNYL 50 mcg/mL 1 mL Vial ONE (16:52)
[2023-07-02 16:54] LABS: ALT (SGPT) 26 U/L (8-55); AST (SGOT) 42 U/L (5-34); Albumin 3.8 g/dL (3.5-5.0); Alkaline Phosphatase 79 U/L (40-110); Anion Gap 15 mmol/L (10-20); BUN (Urea Nitrogen) 14 mg/dL (7.0-18.7); Bilirubin, Total 0.3 mg/dL (0.2-1.2); Calc. Creatinine Clearance 0 mL/min (70-130); Calcium 9.2 mg/dL (7.8-10.44); Carbon Dioxide 22 mmol/L (22-29); Chloride 105 mmol/L (98-107); Estimated GFR 81; Globulin 3.6 g/dL (2.4-3.5); Glucose 110 mg/dL (70-105); Magnesium 1.9 mg/dL (1.6-2.6); Potassium 3.9 mmol/L (3.5-5.1); Protein, Total 7.4 g/dL (6.0-8.3); Sodium 138 mmol/L (136-145)
[2023-07-02 16:56] LABS: Anisocytosis SLIGHT = 6-15 cells HPF (0-5); CellaVision Operator ID LAB.MJL; Hypochromia SLIGHT = 6-15 cells HPF (0-5); Microcytosis SLIGHT = 6-15 cells HPF (0-5); Ovalocytes SLIGHT = 2-5 cells HPF (0-1); Platelet Adequacy Comment Platelets Normal; Polychromasia SLIGHT = 2-3 cells HPF (0-2); Schistocytes SLIGHT = 2-5 cells HPF (0-1)
[2023-07-02 17:03] LABS: Troponin I Less than 0.010 ng/mL (< 0.028)
[2023-07-02] MEDS ORDERED: Ondansetron ODT 4 MG TAB PO PRN (18:43)
[2023-07-02] MEDS ORDERED: Acetaminophen 325 MG TAB PO PRN (18:43)
[2023-07-02] MEDS ORDERED: Ondansetron PF 4 MG/2 ML Vial IVP PRN (18:43)
[2023-07-02 19:48] LABS: SARS-CoV-2 NAA Rapid Test DETECTED (NotDetected)
[2023-07-02] MEDS ORDERED: Senokot S 8.6-50 MG TAB PO PRN (20:49)
[2023-07-02] MEDS ORDERED: Benzonatate 100 MG CAP PO PRN (20:51)
[2023-07-02] MEDS ORDERED: Albuterol 200 PUFF (6.7GM INHALER) INH PRN (20:51)
[2023-07-02] MEDS ORDERED: Famotidine 20 MG TAB PO SCH (21:00)
[2023-07-02] MEDS: Sodium Chloride 0.9% 1,000 ML IV SCH (21:02)
[2023-07-02] MEDS ORDERED: Dextrose 5% in Water 1,000 ML IV PRN (21:04)
[2023-07-02] MEDS ORDERED: Glucagon 1 MG/ML KIT IM PRN (21:04)
[2023-07-02] MEDS ORDERED: Dextrose 50% Abboject 50 ML SYRINGE SLOW IVP PRN (21:04)
[2023-07-02] MEDS ORDERED: Docusate 100 MG CAP PO PRN (21:08)
[2023-07-02 21:47] VITALS: BMI 46.0
[2023-07-02] MEDS: Lidocaine 2% Viscous Solution 10 ML, Aluminum & Magnesium Hydroxide 30 ML SSW SCH (22:48)
[2023-07-03] MEDS: Sodium Chloride 0.9% 1,000 ML IV SCH (00:26)
[2023-07-03] MEDS: Morphine 2 MG/ML VIAL SLOW IVP PRN (01:07)
[2023-07-03 05:45] LABS: #Eosinphils 0.1 thou/uL (0.0-0.7); #Monocytes 0.4 thou/uL (0.11-0.59); #Neutrophils 2.3 thou/uL (1.40-6.50); %Eosinophils 1.3 % (0.0-10.0); %Lymphocytes 42.5 % (21.0-51.0); %Monocytes 7.8 % (0.0-10.0); Hematocrit 29.9 % (36.0-47.0); Hemoglobin 9.1 g/dL (12.0-16.0); Mean Corpuscular HGB CONC 30.4 g/dL (32.0-36.0); Mean Corpuscular Hemoglobin 21.7 pg (27.0-31.0); Mean Corpuscular Volume 71.4 fl (78.0-98.0); Mean Platelet Volume 11.1 fL (7.4-10.4); Platelet Count 242 10x3/uL (130-400); RBC Distribution Width 16.6 % (11.5-14.5); Red Blood Cell (RBC) Count 4.19 mill/uL (4.20-5.40); White Blood Cell (WBC) Count 4.7 10x3/uL (4.8-10.8)
[2023-07-03 06:18] LABS: Anion Gap 11 mmol/L (10-20); BUN (Urea Nitrogen) 13 mg/dL (7.0-18.7); Calc. Creatinine Clearance 191 mL/min (70-130); Calcium 8.1 mg/dL (7.8-10.44); Carbon Dioxide 22 mmol/L (22-29); Chloride 109 mmol/L (98-107); Estimated GFR 88; Glucose 84 mg/dL (70-105); Potassium 3.4 mmol/L (3.5-5.1); Sodium 139 mmol/L (136-145)
[2023-07-03] MEDS: Ferrex 150 Plus (iron poly cmplx) PO SCH (09:21)
[2023-07-03] MEDS: Acetaminophen 650 MG Suppository PR PRN (09:24)
[2023-07-03] MEDS: Potassium Chloride 20 MEQ in Premix 1 BAG IVPB SCH (16:46)
[2023-07-04 00:59] VITALS: TEMP 97.4
[2023-07-04 05:06] LABS: #Eosinphils 0.2 thou/uL (0.0-0.7); #Monocytes 0.3 thou/uL (0.11-0.59); #Neutrophils 1.9 thou/uL (1.40-6.50); %Eosinophils 3.7 % (0.0-10.0); %Lymphocytes 47.6 % (21.0-51.0); %Monocytes 7.3 % (0.0-10.0); %Neutrophils 41.2 % (42.0-75.0); Hematocrit 29.8 % (36.0-47.0); Hemoglobin 9.1 g/dL (12.0-16.0); Mean Corpuscular HGB CONC 30.5 g/dL (32.0-36.0); Mean Corpuscular Hemoglobin 21.9 pg (27.0-31.0); Mean Corpuscular Volume 71.8 fl (78.0-98.0); Mean Platelet Volume 10.4 fL (7.4-10.4); Platelet Count 234 10x3/uL (130-400); RBC Distribution Width 16.5 % (11.5-14.5); Red Blood Cell (RBC) Count 4.15 mill/uL (4.20-5.40); White Blood Cell (WBC) Count 4.5 10x3/uL (4.8-10.8)
[2023-07-04 05:21] LABS: INR-International Normal Ratio 1.2; PTT 32.4 sec (22.9-36.1); Prothrombin Time 14.7 sec (12.0-14.7)
[2023-07-04 05:41] LABS: ALT (SGPT) 32 U/L (8-55); AST (SGOT) 23 U/L (5-34); Alkaline Phosphatase 60 U/L (40-110); Anion Gap 9 mmol/L (10-20); BUN (Urea Nitrogen) 9 mg/dL (7.0-18.7); Bilirubin, Direct 0.1 mg/dL (0.1-0.3); Bilirubin, Total 0.2 mg/dL (0.2-1.2); Calc. Creatinine Clearance 200 mL/min (70-130); Calcium 8.2 mg/dL (7.8-10.44); Carbon Dioxide 24 mmol/L (22-29); Chloride 110 mmol/L (98-107); Estimated GFR 93; Glucose 82 mg/dL (70-105); Lipase 32 U/L (8-78); Potassium 3.5 mmol/L (3.5-5.1); Protein, Total 5.6 g/dL (6.0-8.3); Sodium 139 mmol/L (136-145)
[2023-07-04 05:48] LABS: Anisocytosis SLIGHT = 6-15 cells HPF (0-5); CellaVision Operator ID lab.sh2; Hypochromia SLIGHT = 6-15 cells HPF (0-5); Microcytosis SLIGHT = 6-15 cells HPF (0-5); Ovalocytes SLIGHT = 2-5 cells HPF (0-1); Platelet Adequacy Comment Platelets Normal; Polychromasia SLIGHT = 2-3 cells HPF (0-2)
[2023-07-04] MEDS ORDERED: Lidocaine 1% PF 5 ML VIAL ONE (06:57)
[2023-07-04] MEDS ORDERED: PROPOFOL 20 ML ONE (06:57)
[2023-07-04] MEDS ORDERED: Ondansetron PF 4 MG/2 ML Vial ONE (06:57)
[2023-07-04] MEDS ORDERED: Dexamethasone 4 mg/ml Vial ONE (06:57)
[2023-07-04] MEDS ORDERED: Rocuronium Bromide 10 MG/ML (10ML VIAL) ONE (06:57)
[2023-07-04] MEDS ORDERED: Iopamidol 10 ML FS ONE (08:45)
[2023-07-04] MEDS ORDERED: CEFAZOLIN 2 GM VIAL ONE (09:19)
[2023-07-04] MEDS ORDERED: Sodium Chloride 0.9% 100 ML ONE (09:20)
[2023-07-04] MEDS ORDERED: Midazolam HCl 2 mg/2 ml Vial ONE (09:28)
[2023-07-04] MEDS ORDERED: fentaNYL PF 100 MCG/2 ML SYRINGE ONE ×2 (09:33→10:59)
[2023-07-04] MEDS ORDERED: SUGAMMADEX SODIUM 200 MG/2 ML VIAL ONE (10:02)
[2023-07-04] MEDS ORDERED: fentaNYL 50 mcg/mL 1 mL Vial ONE (10:19)
[2023-07-04] MEDS ORDERED: Iopamidol 20 ML FS ONE (10:34)
[2023-07-04] MEDS ORDERED: Ketorolac Tromethamine 30 MG (1 mL) VIAL ONE (10:47)
[2023-07-04] MEDS ORDERED: Promethazine HCl 25 MG/ML VIAL IM PRN (11:11)
[2023-07-04] MEDS ORDERED: Ondansetron HCl/PF 4 MG/2 ML Vial IVP PRN (11:11)
[2023-07-04 11:57] VITALS: BP 144/95
[2023-07-04] MEDS: HYDROcodone/Acetaminophen 5/325 mg Tablet PO PRN (14:23)
== END 2023-07-04 15:48 | disposition home or self-care (01) | DRG 417 ==
LOC: ERS 15:48 → SURG A 18:47 → SURG B 07-03 00:19
PROVIDERS: ADMIT Internal Medicine; ATTEND Internal Medicine
PROC: 0FT44ZZ Resection of Gallbladder, Percutaneous Endoscopic Approach (ICD-10-PCS; principal; 2023-07-04)
PROC: BF031ZZ Plain Radiography of Gallbladder and Bile Ducts using Low Osmolar Contrast (ICD-10-PCS; 2023-07-04)
DX: K80.00 Calculus of gallbladder with acute cholecystitis without obstruction (principal); K85.90 Acute pancreatitis without necrosis or infection, unspecified; U07.1 COVID-19; K83.8 Other specified diseases of biliary tract; D50.9 Iron deficiency anemia, unspecified; Z88.2 Allergy status to sulfonamides; Z98.891 History of uterine scar from previous surgery; Z98.890 Other specified postprocedural states; Z82.49 Family history of ischemic heart disease and other diseases of the circulatory system
CPT/HCPCS: 36415; 36416; 47532; 71045; 74177; 76705; 80048; 80053; 80076; 83605; 83690; 83735; 83880; 84478; 84484; 84703; 85025; 85610; 85730; 86850; 86900; 86901; 88304; 93005; 96374; 96375; A4649; C1713; J1100; J1885; J2250; J2272; J2405; J2704; J3010; J3480; J3490; J7050; Q9966; Q9967